=== PATIENT | female | born 1995 | race Caucasian/White ===

== ENCOUNTER 2017-11-25 15:29 | Emergency (ER) | payer OTHER ==
[2017-11-25] MEDS ORDERED: NS 1,000 ML IV ONE ×2 (15:31→16:12)
--- NOTE | 2017-11-25 15:32 | EDPHY ---
H & P Time Seen by Provider: 11/25/17 15:31 HPI/ROS: CHIEF COMPLAINT: Syncope x2 HISTORY OF PRESENT ILLNESS: Was out drinking last night with Tequila and 1 beer , and no real food but just water today. Was at the [facility] and had 2 episodes of syncope. Brought in by EMS after 1.5 L of IV fluids still orthostatic in that she gets tachycardic when standing up. The patient says that she was at the checkout counter being asked if she wanted her received when she got lightheaded and dizzy and fainted and hit her cheek but otherwise sustained no injuries. She got up again and then had a 2nd episode of syncope. She feels dehydrated and a little bit thirsty. Not associated with chest pain shortness of breath or headache. No neck pain. No recent illnesses. REVIEW OF SYSTEMS: Eye: no change in vision ENT: no sore throat Cardiac: No chest pain Pulmonary: Not short of breath Abdomen: no vomiting, diarrhea, abdominal pain Musculoskeletal: no back pain or neck pain Skin: No lacerations Neuro: no headache Constitutional: no fever : no urinary symptoms A comprehensive 10 point review of systems is otherwise negative aside from elements mentioned in the history of present illness. PAST MEDICAL HISTORY: Negative, not Social history: Nonsmoker General Appearance: Alert and conversant, cooperative. Eyes: No scleral icterus. ENT, Mouth: Still has dry mucous membranes. No tongue laceration or abrasion. No facial bony tenderness. Respiratory: Normal respiratory effort, breath sounds equal, lungs are clear to auscultation. Cardiovascular: Regular rate and rhythm. No murmur. Gastrointestinal: Abdomen is soft and non tender. Neurological: Alert, face symmetric, normal motor and sensory in extremities. Skin: Warm and dry, no rashes. Musculoskeletal: No spinal tenderness. Psychiatric: Not agitated. Emergency Department course/MDM: CBC chemistry and , EKG. IV fluid hydration. More likely to be syncope from orthostatic from dehydration. 1757: Feels better, ambulatory without dizziness or ataxia or syncope, stable for discharge with her father. Constitutional: Initial Vital Signs Temperature (C) 36.7 C 11/25/17 15:31 Heart Rate 89 11/25/17 15:31 Respiratory Rate 16 11/25/17 15:31 Blood Pressure 101/63 11/25/17 15:31 O2 Sat (%) 99 06/29/18 15:31 O2 Delivery Mode Room Air Medical Decision Making - Diagnostics EKG Interpretation: 12-lead EKG interpreted by me; official reading is in trace master. My interpretation is sinus rhythm rate 86 normal intervals. Differential Diagnosis: Differential diagnosis considered for syncope including but not limited to vasovagal syncope, arrhythmia, dehydration, and blood loss. - Data Points Laboratory Results: Laboratory Results 11/25/17 15:35 11/25/17 15:35 11/25/17 11/25/17 11/25/17 15:35 15:35 15:35 WBC 7.94 10^3/uL 10^3/uL (3.80-9.50) RBC 3.92 10^6/uL L 10^6/uL (4.18-5.33) Hgb 12.2 g/dL L g/dL (12.6-16.3) Hct 35.5 % L % (38.0-47.0) MCV 90.6 fL fL (81.5-99.8) MCH 31.1 pg pg (27.9-34.1) MCHC 34.4 g/dL g/dL (32.4-36.7) RDW 12.0 % % (11.5-15.2) Plt Count 206 10^3/uL 10^3/uL (150-400) MPV 9.3 fL fL (8.7-11.7) Neut % (Auto) 70.0 % % (39.3-74.2) Lymph % (Auto) 20.5 % % (15.0-45.0) Cottle % (Auto) 7.9 % % (4.5-13.0) Eos % (Auto) 0.8 % % (0.6-7.6) Baso % (Auto) 0.5 % % (0.3-1.7) Nucleat RBC Rel Count 0.0 % % (0.0-0.2) Absolute Neuts (auto) 5.56 10^3/uL 10^3/uL (1.70-6.50) Absolute Lymphs (auto) 1.63 10^3/uL 10^3/uL (1.00-3.00) Absolute Monos (auto) 0.63 10^3/uL 10^3/uL (0.30-0.80) Absolute Eos (auto) 0.06 10^3/uL 10^3/uL (0.03-0.40) Absolute Basos (auto) 0.04 10^3/uL 10^3/uL (0.02-0.10) Absolute Nucleated RBC 0.00 10^3/uL 10^3/uL (0-0.01) Immature Gran % 0.3 % % (0.0-1.1) Immature Gran # 0.02 10^3/uL 10^3/uL (0.00-0.10) Sodium 141 mEq/L mEq/L (135-145) Potassium 3.9 mEq/L mEq/L (3.3-5.0) Chloride 113 mEq/L H mEq/L (97-110) Carbon Dioxide 20 mEq/l L mEq/l (22-31) Anion Gap 8 mEq/L mEq/L (8-16) BUN 15 mg/dL mg/dL (7-23) Creatinine 0.7 mg/dL mg/dL (0.6-1.0) Estimated GFR > 60 Glucose 63 mg/dL L mg/dL (70-100) Calcium 8.0 mg/dL L mg/dL (8.5-10.4) Beta HCG, Qual NEGATIVE Medications Given: Discontinued Medications Sodium Chloride (Ns) 1,000 mls @ 0 mls/hr IV EDNOW ONE; Wide Open PRN Reason: Protocol Stop: 11/25/17 15:32 Last Admin: 11/25/17 15:41 Dose: 1,000 mls Sodium Chloride (Ns) 1,000 mls @ 0 mls/hr IV EDNOW ONE; Wide Open PRN Reason: Protocol Stop: 11/25/17 16:13 Last Admin: 11/25/17 16:23 Dose: 1,000 mls Departure - Departure Disposition: Home, Routine, Self-Care Clinical Impression: Dehydration Syncope Qualifiers: Syncope type: vasovagal syncope Qualified Code(s): R55 - Syncope and collapse Condition: Good Instructions: Syncope (ED) Referrals: Jalyn Pacheco [Physician [facility]] - As per Instructions
--- NOTE | 2017-11-25 15:43 | CPEKG ---
Heart Rate: 86 RR Interval: 698 P-R Interval: 140 QRSD Interval: 82 QT Interval: 380 QTC Interval: 455 P [place]: 68 QRS [place]: 61 T Wave [place]: 33 EKG Severity - NORMAL ECG - EKG Impression: SINUS RHYTHM Electronically Signed By: Paulie White 25-Nov-2017 15:42:34
[2017-11-25 15:48] LABS: PLATELET COUNT 206 10^3/uL (150-400)
[2017-11-25 17:10] VITALS: BP 101/52
== END 2017-11-25 17:11 | disposition home or self-care (01) ==
LOC: EDUNIT#
DX: R55 Syncope and collapse (principal); E86.9 Volume depletion, unspecified